=== PATIENT | male | born 1935 | race Caucasian/White ===

== ENCOUNTER 2017-07-22 11:31 | Inpatient (IN) | payer MEDICARE, BC, MEDICAID ==
[2017-07-22] MEDS ORDERED: Amiodarone In Dextrose,Iso-Osm 150 MG in Premix Bag 1 BAG IV ONE ×4 (11:43→12:47)
--- NOTE | 2017-07-22 11:47 | EDM.PDOC ---
ED HPI GENERAL MEDICAL PROBLEM - General Chief Complaint: Chest Pain Stated Complaint: [facility] Time Seen by Provider: 07/22/17 11:42 Source of Information: Reports: Patient, EMS Notes Reviewed, Jail Records History Limitations: Reports: No Limitations - History of Present Illness INITIAL COMMENTS - FREE TEXT/NARRATIVE: 81-year-old male arrives in the ED per ambulance from [facility] in [place]. It's unclear when he was identified that his heart rate was irregularly irregular this. I'm presuming it was identified this morning. Patient is not able to provide much useful history. He does not believe that he had any breakfast. She knows he has had his medications today. Patient denies any chest pain. Denies dizziness. Denies being short of breath. He came into the ED on 3 L of oxygen per minute but he's 98%. We will leave him off oxygen see where he room air. He has med list suggest that he is on small dose of digoxin daily and Coreg. This suggest a history of congestive failure and possibly underlying atrial fib. He is unsure if there's been any recent medication changes. CODE STATUS is listed as DO NOT RESUSCITATE. Onset: Unknown/Unsure Location: Reports: Other (Addendum 5 in the alf today to have an irregular heartbeat in the 140s and 150s.) Quality: Reports: Other (He denies any chest pain) Severity: Mild Improves with: Reports: None Worsens with: Reports: None Context: Denies: Activity, Exercise, Lifting, Sick Contact, Trauma, Other Associated Symptoms: Reports: Loss of Appetite, Malaise, Shortness of Breath, Weakness (He is not feeling any palpitations in his chest.). 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: Reports: Other (see below) (Only his normal medications) - Related Data Allergies Allergy/AdvReac Type Severity Reaction Status Date / Time morphine Allergy Cannot Verified 04/08/15 13:39 Remember Home Meds: Home Meds Carvedilol [Coreg] 3.125 mg PO BID 04/08/15 [History] Clopidogrel [Plavix] 75 mg PO DAILY 04/08/15 [History] Digoxin [Lanoxin] 125 mcg PO DAILY 04/08/15 [History] Furosemide [Lasix] 20 mg PO DAILY 04/08/15 [History] Isosorbide Mononitrate [Imdur] 15 mg PO DAILY 04/08/15 [History] Latanoprost [Xalatan 0.005% Ophth Soln] 2.5 ml EYEBOTH BEDTIME 04/08/15 [History ] Lisinopril [Prinivil] 2.5 mg PO DAILY 04/08/15 [History] Sertraline [Zoloft] 25 mg PO DAILY 04/08/15 [History] Allopurinol [Zyloprim] 100 mg PO DAILY 07/22/17 [History] metFORMIN [Glucophage] 500 mg PO BIDMEALS 07/22/17 [History] Past Medical History HEENT History: Reports: Cataract, Glaucoma, Other (See Below) Other HEENT History: dry eye syndrome. acute ginigivitis Cardiovascular History: Reports: CAD, Cardiomyopathy, Heart Failure, Hypertension, AR (Has had 2 myocardial infarctions in the past. He was placed on Plavix after the last MRI. 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 Psychiatric History: Reports: Anxiety, Dementia - Infectious Disease History Infectious Disease History: Reports: C-Difficile, Measles, Mumps - Past Surgical History HEENT Surgical History: Reports: Cataract Surgery GI Surgical History: Reports: Hernia Repair/Other Neurological Surgical History: Reports: Other (See Below) Social & Family History - Living Situation & Occupation Living situation: Reports: , Extended Care Facility (Resides at [facility] with [facility]) Occupation: Retired ED ROS GENERAL - Review of Systems Review Of Systems: See Below Constitutional: Reports: Malaise, Weakness, Fatigue, Decreased Appetite (Did not eat breakfast this morning). Denies: Fever, Chills, Weight Loss HEENT: Reports: Ear Pain (Complains of bilateral ear pain.) Respiratory: Reports: Shortness of Breath (Respiratory rate is 31/m. He denies feeling short of breath.). Denies: Wheezing, Pleuritic Chest Pain, Cough, Sputum, Hemoptysis, Other Cardiovascular: Reports: Blood Pressure Problem, Dyspnea on Exertion. Denies: Chest Pain, Claudication (Mildly hypertensive on initial examination.), Edema, Lightheadedness, Orthopnea Endocrine: Reports: Fatigue (Chronically) GI/Abdominal: Reports: Constipation, Decreased Appetite. Denies: Abdominal Pain , Anorexia, Black Stool, Bloody Stool : Reports: Frequency, Other (Known BPH.) Musculoskeletal: Reports: Back Pain, Joint Pain (Knees hips and shoulders at times) Skin: Reports: Bruising (Bruises easy as he is on Plavix.) Neurological: Reports: Confusion, Difficulty Walking (Today). Denies: Headache , Numbness, Pre-Existing Deficit, Seizure, Syncope, Tingling Psychiatric: Reports: No Symptoms Hematologic/Lymphatic: Reports: No Symptoms Immunologic: Reports: No Symptoms ED EXAM, GENERAL - Physical Exam Exam: See Below Exam Limited By: No Limitations General Appearance: Alert, WD/WN, No Apparent Distress Eye Exam: Bilateral Eye: Normal Inspection (Slight pallor.) Ears: Other (Right ear canal is occluded with cerumen. Left has a lot of cerumen but TM appears normal.) Throat/Mouth: Normal Inspection, Normal Lips, Normal Voice Head: Atraumatic, Normocephalic Neck: Normal Inspection, Supple, Non-Tender, Full Range of Motion. No: Carotid Bruit, Lymphadenopathy (L), Lymphadenopathy (R) Respiratory/Chest: No Accessory Muscle Use ( tachypnea at rest 31-32/m. ), Respiratory Distress ( Occasional expiratory wheeze.), Decreased Breath Sounds ( Besides of diminished lower 35% of lung beth.), Rales, Wheezing (Fine rales both bases.) Cardiovascular: No Edema, No Murmur, No Rub, JVD (3 cm below the angle of his right mandible.), Tachycardia, Irregularly Irregular (Monitor shows wide- complex tachycardia at 150/m.). No: Normal Peripheral Pulses GI/Abdominal: Non-Tender, No Organomegaly, No Abnormal Bruit, No Mass, Distended (Mildly distended upper abdomen to be to percussion.) Back Exam: Normal Inspection, Full Range of Motion. No: CVA Tenderness (L), CVA Tenderness (R) Extremities: Normal Inspection, Limited Range of Motion, Other (Has evidence most osteophytic changes in both knees.). No: Pedal Edema Neurological: Alert, CN II-XII Intact, No Motor/Sensory Deficits, Other ( Appears to have impaired short-term memory.). No: Normal Cognition Psychiatric: Flat Affect Skin Exam: Warm, Intact, Normal Color, No Rash, Other (Does not feel febrile.) ED CARDIOLOGY PROCEDURES - Cardioversion Time of Cardioversion: 13:20 Indication: Wide Complex Tachycardia NOS Patient Counseled: Yes Informed Consent Obtained: Yes Preparation: IV Access, Airway Management Equipment, Supplemental Oxygen, Reversal Agents Available Pre-Procedure Sedation: Midazolam, Fentanyl Cardioversion Energy: 100J Sync Mode: Biphasic Successful: Yes Number of Attempts: 1 Patient Condition Post Cardioversion: Improved Post Cardioversion EKG Reviewed: Yes EKG INTERPRETATION EKG Date: 07/22/17 Time: 11:35 Rhythm: Other (Wide-complex tachycardia of unclear etiology. V. tach.) Rate (Beats/Min): 149 [place]: RAD-Right [place] Deviation P-Wave: Absent QRS: Other (Wide-complex tachycardia i.e. ventricular tachycardia. Likely right bundle branch block pattern) ST-T: Other (Unable to comment due to wandering baseline.) EKG Interpretation Comments: Abnormal ECG Course - Vital Signs Last Recorded V/S: Last Vital Signs Temp 35.6 C 07/22/17 11:35 Pulse 149 H 07/22/17 11:35 Resp 31 H 07/22/17 11:35 BP 117/105 H 07/22/17 11:35 Pulse Ox 98 07/22/17 11:35 - Orders/Labs/Meds Orders: Active Orders 24 hr Category Date Time Status EKG Documentation Completion [RC] STAT Care 07/22/17 11:42 Active EKG Documentation Completion [RC] STAT Care 07/22/17 13:24 Active Chest 1V Frontal [CR] Stat Exams 07/22/17 11:42 Taken Amiodarone In Dextrose,Iso-Osm [Nexterone in Dextrose Med 07/22/17 11:45 Active 360 MG/200 ML] 360 mg in 200 ml IV ASDIRECTED Sodium Chloride 0.9% [Normal Saline] 1,000 ml Med 07/22/17 12:45 Active IV ASDIRECTED Medication Orders Amiodarone HCl/Dextrose (Nexterone In Dextrose 360 Mg/200 Ml) 360 mg in 200 mls @ 33.333 mls/hr IV ASDIRECTED FRANKIE; Protocol Last Admin: 07/22/17 12:07 Dose: 33.333 mls/hr Sodium Chloride (Normal Saline) 1,000 mls @ 100 mls/hr IV ASDIRECTED FRANKIE Last Admin: 07/22/17 12:48 Dose: 100 mls/hr Labs: Laboratory Tests 07/22/17 07/22/17 07/22/17 Range/Units 11:55 11:55 11:55 WBC 17.88 H (4.23-9.07) K/mm3 RBC 5.27 (4.63-6.08) M/mm3 Hgb 15.3 (13.7-17.5) gm/L Hct 45.4 (40.1-51.0) % MCV 86.1 (79.0-92.2) fl MCH 29.0 (25.7-32.2) pg MCHC 33.7 (32.2-35.5) g/dl RDW Std Deviation 44.6 H (35.1-43.9) fL Plt Count 254 (163-337) K/mm3 MPV 10.4 (9.4-12.3) fl Neutrophils % (Manual) 67 H (40-60) % Band Neutrophils % 0 (0-10) % Lymphocytes % (Manual) 27 (20-40) % Atypical Lymphs % 0 % Monocytes % (Manual) 4 (2-10) % Eosinophils % (Manual) 1 (0.8-7.0) % Basophils % (Manual) 1 (0.2-1.2) Platelet Estimate Adequate RBC Morph Comment Normal PT 10.5 (9.5-12.1) SECONDS INR 0.96 Sodium 137 (136-145) mEq/L Potassium 5.4 H (3.5-5.1) mEq/L Chloride 102 (98-107) mEq/L Carbon Dioxide 27 (21-32) mEq/L Anion Gap 13.4 (5-15) BUN 29 H (7-18) mg/dL Creatinine 1.4 H (0.7-1.3) mg/dL Est Cr Clr Drug Dosing 42.73 mL/min Estimated GFR (MDRD) 49 (>60) mL/min BUN/Creatinine Ratio 20.7 H (14-18) Glucose 257 H (83-115) mg/dL Lactic Acid (0.4-2.0) mmol/L Calcium 9.6 (8.5-10.1) mg/dL Magnesium 1.9 (1.8-2.4) mg/dl Total Bilirubin 0.7 (0.2-1.0) mg/dL AST 32 (15-37) U/L ALT 43 (16-63) U/L Alkaline Phosphatase 66 (46-116) U/L CK-MB (CK-2) 7.8 H (0-3.6) ng/ml Troponin I 0.373 H* (0.00-0.056) ng/mL C-Reactive Protein 1.5 H* (<1.0) mg/dL NT-Pro-B Natriuret Pep (0-450) pg/mL Total Protein 7.7 (6.4-8.2) g/dl Albumin 3.9 (3.4-5.0) g/dl Globulin 3.8 gm/dL Albumin/Globulin Ratio 1.0 (1-2) Digoxin 0.6 L (0.9-2.0) ng/mL 18 07/22/17 Range/Units 11:55 11:55 WBC (4.23-9.07) K/mm3 RBC (4.63-6.08) M/mm3 Hgb (13.7-17.5) gm/L Hct (40.1-51.0) % MCV (79.0-92.2) fl MCH (25.7-32.2) pg MCHC (32.2-35.5) g/dl RDW Std Deviation (35.1-43.9) fL Plt Count (163-337) K/mm3 MPV (9.4-12.3) fl Neutrophils % (Manual) (40-60) % Band Neutrophils % (0-10) % Lymphocytes % (Manual) (20-40) % Atypical Lymphs % % Monocytes % (Manual) (2-10) % Eosinophils % (Manual) (0.8-7.0) % Basophils % (Manual) (0.2-1.2) Platelet Estimate RBC Morph Comment PT (9.5-12.1) SECONDS INR Sodium (136-145) mEq/L Potassium (3.5-5.1) mEq/L Chloride (98-107) mEq/L Carbon Dioxide (21-32) mEq/L Anion Gap (5-15) BUN (7-18) mg/dL Creatinine (0.7-1.3) mg/dL Est Cr Clr Drug Dosing mL/min Estimated GFR (MDRD) (>60) mL/min BUN/Creatinine Ratio (14-18) Glucose (83-115) mg/dL Lactic Acid 2.2 H (0.4-2.0) mmol/L Calcium (8.5-10.1) mg/dL Magnesium (1.8-2.4) mg/dl Total Bilirubin (0.2-1.0) mg/dL AST (15-37) U/L ALT (16-63) U/L Alkaline Phosphatase (46-116) U/L CK-MB (CK-2) (0-3.6) ng/ml Troponin I (0.00-0.056) ng/mL C-Reactive Protein (<1.0) mg/dL NT-Pro-B Natriuret Pep 1968 H (0-450) pg/mL Total Protein (6.4-8.2) g/dl Albumin (3.4-5.0) g/dl Globulin gm/dL Albumin/Globulin Ratio (1-2) Digoxin (0.9-2.0) ng/mL Meds: Medications Generic Name Dose Route Start Last Admin Trade Name Freq PRN Reason Stop Dose Admin Amiodarone HCl/Dextrose 360 mg in 200 mls @ 33.333 mls/hr 07/22/17 11:45 12:07 Nexterone In Dextrose 360 Mg/200 Ml IV 33.333 mls/hr ASDIRECTED FRANKIE Administration Protocol Sodium Chloride 1,000 mls @ 100 mls/hr 07/22/17 12:45 07/22/17 12:48 Normal Saline IV 100 mls/hr ASDIRECTED FRANKIE Administration Discontinued Medications Generic Name Dose Route Start Last Admin Trade Name Freq PRN Reason Stop Dose Admin Fentanyl 100 mcg 07/22/17 13:00 07/22/17 13:27 Sublimaze IVPUSH 07/22/17 13:01 50 mcg ONETIME ONE Administration Furosemide 40 mg 07/22/17 14:10 Lasix IVPUSH 07/22/17 14:11 NOW ONE Amiodarone HCl/Dextrose 150 mg 100 mls @ 400 mls/hr 07/22/17 11:43 07/22/17 11:52 / Premix IV 07/22/17 11:57 400 mls/hr NOW ONE Administration Protocol Amiodarone HCl 150 mg/ 103 mls @ 600 mls/hr 07/22/17 12:31 Dextrose/Water IV 07/22/17 12:41 .BOLUS ONE Amiodarone HCl/Dextrose Confirm 07/22/17 12:37 07/22/17 12:54 Nexterone In Dextrose 150 Mg/100 Ml Administered 07/22/17 12:38 Not Given Dose 100 mls @ as directed IV .STK-MED ONE Sodium Chloride Confirm 07/22/17 12:38 07/22/17 12:49 Normal Saline Administered 07/22/17 12:39 Not Given Dose 1,000 mls @ as directed .ROUTE .STK-MED ONE Amiodarone HCl/Dextrose 150 mg 100 mls @ 400 mls/hr 07/22/17 12:47 07/22/17 12:49 / Premix IV 07/22/17 13:01 400 mls/hr NOW ONE Administration Protocol Metoclopramide HCl 7.5 mg 07/22/17 11:58 07/22/17 12:01 Reglan IVPUSH 07/22/17 11:59 7.5 mg ONETIME ONE Administration Metoclopramide HCl Confirm 07/22/17 12:00 07/22/17 12:10 Reglan Administered 07/22/17 12:01 Not Given Dose 10 mg .ROUTE .STK-MED ONE Midazolam HCl 5 mg 07/22/17 13:00 07/22/17 13:34 Versed 1 Mg/Ml IVPUSH 07/22/17 13:01 Not Given ONETIME ONE Midazolam HCl Confirm 07/22/17 13:12 07/22/17 13:33 Versed 1 Mg/Ml Administered 07/22/17 13:13 Not Given Dose 2 mg .ROUTE .STK-MED ONE Midazolam HCl 2 mg 07/22/17 13:30 07/22/17 13:31 Versed 1 Mg/Ml IVPUSH 07/22/17 13:31 2 mg ONETIME ONE Administration Midazolam HCl 2 mg 07/22/17 13:32 07/22/17 13:35 Versed 1 Mg/Ml IVPUSH 07/22/17 13:33 2 mg ONETIME ONE Administration - Radiology Interpretation Free Text/Narrative:: 81-year-old male arrives from [facility] in [place] per ambulance. It's unclear when it was discovered that he is having a rapid irregular heart rate but likely this morning. He has no complaints of chest pain shortness of breath or dizziness. Rectus this morning however. Monitor shows him to be in ventricular tachycardia at least a wide-complex tachycardia at 1 50/m. He has maintained his blood pressure at 125/105. Denies chest pain shortness of breath. He is on digoxin 0.125 mg daily and Coreg 3.25 mg twice a day. He has a history of known cardiomyopathy and congestive failure. Plan: routine labs to be done. He is complaining of bilateral ear pain which may be angina referred from his chest. We could find nothing wrong with his ears otherwise. One view chest x-ray to be done with routine labs including cardiac markers magnesium and lactic acid levels. He will be started on amiodarone 150 mg IV bolus over 10 minutes then inserted drip at 60 mg per hour. No other ECGs are available for comparison purposes. - Re-Assessments/Exams Free Text/Narrative Re-Assessment/Exam: 07/22/17 12:15 1 view chest x-ray reveals poor inspirational film. He has a moderately tortuous thoracic aorta. Cardiac silhouette is within normal limits. There is a mild diffuse vascular congestion pattern without any pleural effusions. No pneumothorax identified. Current heart rate is 1 44/m with O2 sats of 97% on room air. BP is 103 on 85. 07/22/17 12:35 heart rate remains 1 44/m. Will give him another one 50 mg of amiodarone IV bolus. Unfortunately his BP is also falling and is currently 87/ 73 which may or may not be correct since the pulse pressure is so close together. Will give 200 mils normal saline IV bolus. 07/22/17 12:50 Labs are back. Total white count is elevated at 17.88 with a normal differential of 67% neutrophils no bands reported. Just a stress response. Hemoglobin is 15.3 with hematocrit of 45.4. Glucose 254,000. PT is 10.5 with an INR of 0.96. Sodium is 137. Potassium slightly elevated at 5.4. Chloride 102 with a bicarbonate 27. And a gap is normal at 13.4. B1 is mildly elevated at 29 with a mildly elevated creatinine of 1.4. GFR is 49. Glucose is elevated at 257. Lactic acid mildly elevated at 2.2. Serum calcium normal at 9.6 with magnesium normal at 1.9. Liver function normal. CK-MB fraction is elevated at 7.8. Troponin is elevated at 0.373 indicating myocardial ischemia/ infarct. BNP is elevated at 1968. Digoxin level is therapeutic at 0.6. Heart rate remains 1 45/m. O2 sats of 95%. 07/22/17 12:58 thus far as heart rate has been resistant to amiodarone infusion. Current rate is 1 43/m wide-complex tachycardia. Will therefore go ahead with defibrillation since it is causing ischemia and failure. 07/22/17 13:25 cardioverted at 1320 hrs. to sinus rhythm in the 80s. One attempt 100 J. Patient did receive 4 mg of Versed total and 50 g of fentanyl for the procedure. 07/22/17 14:40 his second ECG shows a left bundle branch block but it also suggest hyperacute elevation of the ST segment V1 to V4 suggestive of ST segment elevation myocardial infarction. I spoke to the in this regard. Due to his declining health and mental condition and particularly it is felt not to be aggressive. Second problem is he is already on Plavix and aspirin and is very high risk of bleeding into his brain if he's given thrombolytics. Therefore decision made with the not to proceed with thrombolytics in this case. We will let mother charissa take its course. He is likely to succumb to this illness since assisted third myocardial infarction and apparently his ejection fraction is low doses 16% in the past. She will be admitted to the intensive care unit under the care of Dr. Marrufo at this time. He is glucose status is DO NOT RESUSCITATE /DO NOT INTUBATE. Departure - Departure Time of Disposition: 14:20 Disposition: Admitted As Inpatient 66 Condition: Critical Clinical Impression: Wide-complex tachycardia Acute myocardial infarction Qualifiers: Myocardial infarction type: unspecified Congestive heart failure Qualifiers: Heart failure type: unspecified Heart failure chronicity: acute on chronic Qualified Code(s): I50.9 - Heart failure, unspecified - My Orders Last 24 Hours: My Active Orders 07/22/17 11:42 EKG Documentation Completion [RC] STAT Chest 1V Frontal [CR] Stat 07/22/17 11:45 Amiodarone In Dextrose,Iso-Osm [Nexterone in Dextrose 360 MG/200 ML] 360 mg in 200 ml IV ASDIRECTED 07/22/17 12:45 Sodium Chloride 0.9% [Normal Saline] 1,000 ml IV ASDIRECTED 07/22/17 13:24 EKG Documentation Completion [RC] STAT - Assessment/Plan Last 24 Hours: My Active Orders 07/22/17 11:42 EKG Documentation Completion [RC] STAT Chest 1V Frontal [CR] Stat 07/22/17 11:45 Amiodarone In Dextrose,Iso-Osm [Nexterone in Dextrose 360 MG/200 ML] 360 mg in 200 ml IV ASDIRECTED 07/22/17 12:45 Sodium Chloride 0.9% [Normal Saline] 1,000 ml IV ASDIRECTED 07/22/17 13:24 EKG Documentation Completion [RC] STAT
[2017-07-22] MEDS ORDERED: Metoclopramide 10 MG/2 ML SDV IVPUSH ONE (11:58)
[2017-07-22] MEDS ORDERED: Metoclopramide 10 MG/2 ML SDV ONE (12:00)
[2017-07-22] MEDS ORDERED: Amiodarone 150 MG in Dextrose 5% in Water 100 ML IV ONE ×2 (12:31)
[2017-07-22] MEDS ORDERED: Sodium Chloride 0.9% 1,000 ML ONE (12:38)
[2017-07-22] MEDS: Sodium Chloride 0.9% 1,000 ML IV SCH ×2 (12:48→20:46)
[2017-07-22] MEDS ORDERED: fentaNYL 100 MCG/2 ML SDV IVPUSH ONE (13:00)
[2017-07-22] MEDS ORDERED: Midazolam 1 MG/ML 5 ML SDV IVPUSH ONE (13:00)
[2017-07-22] MEDS ORDERED: Midazolam 1 MG/ML 2 ML SDV ONE (13:12)
[2017-07-22] MEDS ORDERED: Midazolam 1 MG/ML 2 ML SDV IVPUSH ONE ×2 (13:30→13:32)
[2017-07-22] MEDS ORDERED: Furosemide 40 MG/4 ML VIAL IVPUSH ONE (14:10)
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
[2017-07-22] MEDS ORDERED: 50% Dextrose in Water 50 ML Syringe IVPUSH PRN (15:50)
[2017-07-22] MEDS ORDERED: Ondansetron 4 MG/2 ML SDV IVPUSH PRN (15:56)
[2017-07-22] MEDS ORDERED: Metoprolol Tartrate 5 MG/5 ML SDV IVPUSH PRN (15:57)
[2017-07-22] MEDS ORDERED: hydrALAZINE 20 MG/ML SDV IVPUSH PRN (15:57)
[2017-07-22] MEDS: Enoxaparin 80 MG/0.8 ML Syringe SUBCUT SCH (16:33)
[2017-07-22] MEDS: Insulin Aspart 100 Units/ML 3 ML Pen SUBCUT SCH ×2 (17:42→23:07)
[2017-07-22] MEDS ORDERED: Clopidogrel 75 MG Tab PO ONE (18:00)
[2017-07-22] MEDS: Latanoprost 0.005% Ophth Soln 2.5 ML Bottle EYEBOTH SCH (20:48)
[2017-07-23] MEDS ORDERED: Temazepam 15 MG Cap PO PRN (00:24)
[2017-07-23] MEDS: Levalbuterol HCl 1.25 MG/3 ML Neb NEB PRN (00:33)
[2017-07-23] MEDS: Insulin Aspart 100 Units/ML 3 ML Pen SUBCUT SCH ×4 (06:13→21:39)
--- NOTE | 2017-07-23 07:06 | CR ---
Chest: Portable view of the chest was obtained. Comparison: No prior study. Heart size is normal. Tortuous thoracic aorta is seen. Lungs are clear with no acute parenchymal change. Scoliosis is noted within the spine. Impression: 1. Nothing acute is seen on portable chest x-ray. Diagnostic code #1
[2017-07-23] MEDS: Sodium Chloride 0.9% 1,000 ML IV SCH (07:42)
--- NOTE | 2017-07-23 08:26 | CR ---
Chest: Portable view of the chest was obtained. Comparison: Prior chest x-ray of 07/22/17. Heart size is normal. Tortuous thoracic aorta is seen. Lungs are clear without acute parenchymal densities. Ventriculoperitoneal shunt is seen. Bony structures are grossly intact. Impression: 1. Nothing acute is seen on portable chest x-ray. Incidental findings as noted above. Diagnostic code #2
[2017-07-23] MEDS: Allopurinol 100 MG Tab PO SCH (09:17)
[2017-07-23] MEDS: Enoxaparin 80 MG/0.8 ML Syringe SUBCUT SCH (09:17)
[2017-07-23] MEDS: Sertraline 25 MG Tab PO SCH (09:18)
[2017-07-23] MEDS: Furosemide 40 MG/4 ML VIAL IVPUSH SCH (09:18)
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
[2017-07-23] MEDS: Clopidogrel 75 MG Tab PO SCH (10:33)
[2017-07-23] MEDS: Magnesium Sulfate/Water 2 GM in Premix Bag 1 BAG IV SCH ×2 (10:35→12:27)
[2017-07-23] MEDS: Aspirin 81 MG Tab.EC PO SCH (15:23)
[2017-07-23] MEDS: metFORMIN 500 MG Tab PO SCH (16:57)
[2017-07-23] MEDS ORDERED: Hypromellose 0.5% Ophth Soln 15 ML Bottle EYEBOTH PRN (17:05)
[2017-07-23] MEDS: Amiodarone 200 MG Tab PO SCH ×2 (18:35→20:48)
[2017-07-23] MEDS: Latanoprost 0.005% Ophth Soln 2.5 ML Bottle EYEBOTH SCH (20:43)
[2017-07-23] MEDS: Rosuvastatin 10 MG Tab PO SCH (20:43)
[2017-07-24] MEDS: Insulin Aspart 100 Units/ML 3 ML Pen SUBCUT SCH ×4 (06:27→21:36)
--- NOTE | 2017-07-24 08:51 | CR ---
Chest: Portable view of the chest was obtained. Comparison: Prior chest x-ray of 07/23/17. Heart size is normal. Tortuous thoracic aorta is seen. Lungs are clear with no acute parenchymal densities. Bony structures are grossly intact. Impression: 1. Nothing acute is seen on portable chest x-ray. Diagnostic code #2
[2017-07-24] MEDS ORDERED: Clopidogrel 75 MG Tab PO SCH (09:00)
[2017-07-24] MEDS: metFORMIN 500 MG Tab PO SCH ×2 (09:28→18:13)
[2017-07-24] MEDS: Aspirin 81 MG Tab.EC PO SCH (09:29)
[2017-07-24] MEDS: Amiodarone 200 MG Tab PO SCH ×2 (09:29→20:32)
[2017-07-24] MEDS: Furosemide 40 MG/4 ML VIAL IVPUSH SCH (09:29)
[2017-07-24] MEDS: Sertraline 25 MG Tab PO SCH (09:29)
[2017-07-24] MEDS: Allopurinol 100 MG Tab PO SCH (09:29)
[2017-07-24] MEDS: Enoxaparin 80 MG/0.8 ML Syringe SUBCUT SCH (09:29)
[2017-07-24] MEDS: Clopidogrel 75 MG Tab PO SCH (09:29)
[2017-07-24] MEDS: Levalbuterol HCl 1.25 MG/3 ML Neb NEB PRN (10:14)
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
[2017-07-24] MEDS: Latanoprost 0.005% Ophth Soln 2.5 ML Bottle EYEBOTH SCH (20:32)
[2017-07-24] MEDS: Rosuvastatin 10 MG Tab PO SCH (20:32)
--- NOTE | 2017-07-25 08:30 | CR ---
Chest: Portable view of the chest was obtained. Comparison: Prior chest x-ray of 07/24/17. Minimal discoid atelectasis is seen within both lung bases. Lungs otherwise are clear. Heart size appears within normal limits for portable technique. Tortuous thoracic aorta is seen. Ventriculoperitoneal shunt is seen. Bony structures are grossly intact. Impression: 1. Mild bibasilar atelectasis. Other incidental findings. 2. Nothing acute is seen. Diagnostic code #2
[2017-07-25] MEDS: Insulin Aspart 100 Units/ML 3 ML Pen SUBCUT SCH ×4 (08:49→21:01)
[2017-07-25] MEDS: Sertraline 25 MG Tab PO SCH (09:28)
[2017-07-25] MEDS: Clopidogrel 75 MG Tab PO SCH (09:28)
[2017-07-25] MEDS: Aspirin 81 MG Tab.EC PO SCH (09:28)
[2017-07-25] MEDS: Amiodarone 200 MG Tab PO SCH ×2 (09:28→20:55)
[2017-07-25] MEDS: Allopurinol 100 MG Tab PO SCH (09:28)
[2017-07-25] MEDS: metFORMIN 500 MG Tab PO SCH ×2 (09:29→18:12)
[2017-07-25] MEDS: Enoxaparin 40 MG/0.4 ML Syringe SUBCUT SCH (09:29)
[2017-07-25] MEDS: Furosemide 40 MG/4 ML VIAL IVPUSH SCH (10:17)
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
[2017-07-25] MEDS: Rosuvastatin 10 MG Tab PO SCH (20:55)
[2017-07-25] MEDS: Carvedilol 3.125 MG Tab PO SCH (20:56)
[2017-07-25] MEDS: Latanoprost 0.005% Ophth Soln 2.5 ML Bottle EYEBOTH SCH (20:58)
[2017-07-25] MEDS ORDERED: Lisinopril 2.5 MG Tab PO SCH (21:00)
[2017-07-26] MEDS: Insulin Aspart 100 Units/ML 3 ML Pen SUBCUT SCH ×2 (08:19→12:46)
[2017-07-26] MEDS ORDERED: Isosorbide Mononitrate 30 MG Tab.ER PO SCH (09:00)
[2017-07-26] MEDS ORDERED: Furosemide 20 MG Tab PO SCH (09:00)
[2017-07-26] MEDS ORDERED: Spironolactone 25 MG Tab PO SCH (09:00)
[2017-07-26] MEDS ORDERED: Magnesium Sulfate/Water 2 GM in Premix Bag 1 BAG IV ONE (09:33)
[2017-07-26] MEDS: Enoxaparin 40 MG/0.4 ML Syringe SUBCUT SCH (10:09)
[2017-07-26] MEDS: Allopurinol 100 MG Tab PO SCH (10:10)
[2017-07-26] MEDS: Aspirin 81 MG Tab.EC PO SCH (10:10)
[2017-07-26] MEDS: Clopidogrel 75 MG Tab PO SCH (10:10)
[2017-07-26] MEDS: Amiodarone 200 MG Tab PO SCH (10:10)
[2017-07-26] MEDS: Sertraline 25 MG Tab PO SCH (10:11)
[2017-07-26] MEDS: Carvedilol 3.125 MG Tab PO SCH (10:11)
[2017-07-26 10:14] VITALS: BP 125/62
[2017-07-26] MEDS: metFORMIN 500 MG Tab PO SCH (10:18)
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
== END 2017-07-26 15:39 | DRG 281 ==
LOC: JD.ED 11:31 → JD.ICU 14:02
PROVIDERS: ADMIT Internal Medicine Cardiovascular Disease; ATTEND Internal Medicine Cardiovascular Disease
PROC: 5A2204Z Restoration of Cardiac Rhythm, Single (ICD-10-PCS; principal; 2017-07-22)
DX: I21.4 Non-ST elevation (NSTEMI) myocardial infarction (principal); I47.2 Ventricular tachycardia; I42.9 Cardiomyopathy, unspecified; I11.0 Hypertensive heart disease with heart failure; G91.9 Hydrocephalus, unspecified; I13.0 Hypertensive heart and chronic kidney disease with heart failure and stage 1 through stage 4 chronic kidney disease, or unspecified chronic kidney disease; I25.5 Ischemic cardiomyopathy; I25.10 Atherosclerotic heart disease of native coronary artery without angina pectoris; I50.9 Heart failure, unspecified; G30.9 Alzheimer's disease, unspecified; F02.80 Dementia in other diseases classified elsewhere, unspecified severity, without behavioral disturbance, psychotic disturbance, mood disturbance, and anxiety; F41.9 Anxiety disorder, unspecified; K59.00 Constipation, unspecified; N40.1 Benign prostatic hyperplasia with lower urinary tract symptoms; N39.498 Other specified urinary incontinence; R35.0 Frequency of micturition; E87.5 Hyperkalemia; N18.9 Chronic kidney disease, unspecified; I48.91 Unspecified atrial fibrillation; G47.30 Sleep apnea, unspecified; I44.7 Left bundle-branch block, unspecified; I25.2 Old myocardial infarction; I69.993 Ataxia following unspecified cerebrovascular disease; H40.9 Unspecified glaucoma; H04.129 Dry eye syndrome of unspecified lacrimal gland; M25.562 Pain in left knee; M25.561 Pain in right knee; M54.9 Dorsalgia, unspecified; R53.81 Other malaise; R63.0 Anorexia; Z68.27 Body mass index [BMI] 27.0-27.9, adult; R53.83 Other fatigue; R06.00 Dyspnea, unspecified; R06.02 Shortness of breath; R53.1 Weakness; K05.10 Chronic gingivitis, plaque induced; R07.9 Chest pain, unspecified; M25.512 Pain in left shoulder; M25.511 Pain in right shoulder; R06.03 Acute respiratory distress; R06.2 Wheezing; H92.03 Otalgia, bilateral; R23.1 Pallor; R06.82 Tachypnea, not elsewhere classified; Z66 Do not resuscitate; Z88.6 Allergy status to analgesic agent; Z98.2 Presence of cerebrospinal fluid drainage device; Z87.820 Personal history of traumatic brain injury; Z79.84 Long term (current) use of oral hypoglycemic drugs; Z79.02 Long term (current) use of antithrombotics/antiplatelets; Z79.899 Other long term (current) drug therapy
CPT/HCPCS: 36415; 71045; 80053; 80162; 82553; 83605; 83735; 83880; 84484; 85007; 85027; 85610; 86140; 92960 ×2; 93005 ×2; 96361; 96365; 96366; 96374; 96375; 99285; J0282 ×3; J2250 ×2; J2765; J3010; J7040; 51702; 80048; 80061; 81001; 82962; 84443; 85025; 86738; 87086; 87486; 87493; 87581; 87633; 87798; 93306; 94640; 97161-GP; 97165-GO; 97530-GO; A9270-GY; J1650; J1940; J3475; J7612